=== PATIENT | male | born 1990 | race African-American/Black ===

== ENCOUNTER → 2019-08-10 | Outpatient (CLI) | payer SELFPAY | END | disposition home or self-care (01) | LOC: LABWHC1 07:51 | PROVIDERS: ATTEND Obstetrics & Gynecology | DX: Z13.228 Encounter for screening for other metabolic disorders (principal) | CPT/HCPCS: 36415; 81220 ==

== ENCOUNTER 2021-01-06 17:58 | Emergency (ER) | payer OTHER ==
[2021-01-06 18:03] VITALS: TEMP 98.4
[2021-01-06] MEDS ORDERED: HYDROmorphone 1 MG/ML 1 ML SYRINGE IVP STA ×2 (18:30→19:02)
[2021-01-06] MEDS ORDERED: SODIUM CHLORIDE 0.9% 1,000 ML IV STA ×2 (18:34→19:06)
--- NOTE | 2021-01-06 18:44 | ED ---
Extremity Problem HPI - General Chief complaint: Extremity Problem,Nontraumatic Stated complaint: Right arm pain Time Seen by Provider: 01/06/21 18:29 Source: patient, RN notes reviewed Mode of arrival: ambulatory Limitations: no limitations - History of Present Illness Initial comments: Patient is a 22-year-old male that presents to emergency department complaining of a sickle cell crisis in his right arm. He noted that he's had many in the past and this feels just like the previous ones. He noted the pain as a 10 on a 10. He was sitting in bed in no apparent distress or pain. He noted that he forgot to bring his previous notes with a scale that they've used for pain medication administration. He did note that the lauded worked better. He also noted that he was dehydrated and hasn't taken of water. He did report that he did know being dehydrated increases the likelihood of a sickle cell crisis. He denied any chest pain shortness of breath headache nausea vomiting diarrhea constipation - Related Data Previous Rx's Medication Instructions Recorded oxyCODONE HCL/ACETAMINOPHEN 1 tab PO Q6HR PRN 7 Days #28 tab 01/06/21 [Percocet 10-325 mg] Allergies Allergy/AdvReac Type Severity Reaction Status Date / Time Sulfa (Sulfonamide Allergy Rash/Hives Verified 01/06/21 20:23 Antibiotics) Review of Systems ROS Statement: Those systems with pertinent positive or pertinent negative responses have been documented in the HPI. ROS Other: All systems not noted in ROS Statement are negative. Past Medical History Additional Past Medical History / Comment(s): Sickle cell anemia History of Any Multi-Drug Resistant Organisms: None Reported Past Surgical History: No Surgical Hx Reported Past Psychological History: No Psychological Hx Reported Smoking Status: Current every day smoker Past Alcohol Use History: None Reported Past Drug Use History: Marijuana General Exam Limitations: no limitations General appearance: alert, in no apparent distress Head exam: Present: atraumatic, normocephalic, normal inspection Eye exam: Present: normal appearance, PERRL, EOMI. Absent: scleral icterus, conjunctival injection, periorbital swelling ENT exam: Present: normal exam, mucous membranes moist Neck exam: Present: normal inspection. Absent: tenderness, meningismus, lymphadenopathy Respiratory exam: Present: normal lung sounds bilaterally. Absent: respiratory distress, wheezes, rales, rhonchi, stridor Cardiovascular Exam: Present: regular rate, normal rhythm, normal heart sounds. Absent: systolic murmur, diastolic murmur, rubs, gallop, clicks GI/Abdominal exam: Present: soft, normal bowel sounds. Absent: distended, tenderness, guarding, rebound, rigid Extremities exam: Present: normal inspection, full ROM, normal capillary refill. Absent: tenderness, pedal edema, joint swelling, calf tenderness Back exam: Present: normal inspection Neurological exam: Present: alert, oriented X3, CN II-XII intact Psychiatric exam: Present: normal affect, normal mood Skin exam: Present: warm, dry, intact, normal color. Absent: rash Course Vital Signs 01/06/21 01/06/21 18:00 19:21 Temperature 98.4 F Pulse Rate 81 86 Respiratory 16 18 Rate Blood Pressure 160/103 153/99 O2 Sat by Pulse 93 L 98 Oximetry Medical Decision Making - Medical Decision Making 22-year-old male having a sickle cell crisis right arm. Basic lab work was ordered. Dilaudid 2 mg was ordered and administered, pain will be evaluated to monitor pain control. 1 L normal saline bolus ordered to improve her volume status. More pain medication was given, due to patient being in pain still. Case discussed with Dr. Olson, was decided patient to discharge home with some pain medication and hematology follow-up. - Lab Data Result diagrams: 01/06/21 18:37 01/06/21 18:37 Lab Results 01/06/21 01/06/21 01/06/21 Range/Units 18:37 18:37 19:41 WBC 8.5 (3.8-10.6) k/uL RBC 5.08 (4.30-5.90) m/uL Hgb 14.1 (13.0-17.5) gm/dL Hct 39.5 (39.0-53.0) % MCV 77.7 L (80.0-100.0) fL MCH 27.7 (25.0-35.0) pg MCHC 35.7 (31.0-37.0) g/dL RDW 15.9 H (11.5-15.5) % Plt Count 137 L (150-450) k/uL MPV 8.0 Neutrophils % Not Reportable Neutrophils % (Manual) 54 % Lymphocytes % Not Reportable Lymphocytes % (Manual) 41 % Monocytes % Not Reportable Monocytes % (Manual) 5 % Eosinophils % Not Reportable Basophils % Not Reportable Neutrophils # Not Reportable Neutrophils # (Manual) 4.59 (1.3-7.7) k/uL Lymphocytes # Not Reportable Lymphocytes # (Manual) 3.49 (1.0-4.8) k/uL Monocytes # Not Reportable Monocytes # (Manual) 0.43 (0-1.0) k/uL Eosinophils # Not Reportable Basophils # Not Reportable Nucleated RBCs 0 (0-0) /100 WBC Manual Slide Review Performed Reactive Lymphocytes Present Polychromasia Present Hyperchromasia Slight Microcytosis Slight Target Cells Present Sodium 137 (137-145) mmol/L Potassium 3.9 (3.5-5.1) mmol/L Chloride 103 (98-107) mmol/L Carbon Dioxide 26 (22-30) mmol/L Anion Gap 8 mmol/L BUN 13 (9-20) mg/dL Creatinine 0.97 (0.66-1.25) mg/dL Est GFR (CKD-EPI)AfAm >90 (>60 ml/min/1.73 sqM) Est GFR (CKD-EPI)NonAf >90 (>60 ml/min/1.73 sqM) Glucose 97 (74-99) mg/dL Calcium 9.8 (8.4-10.2) mg/dL Total Bilirubin 1.1 (0.2-1.3) mg/dL AST 35 (17-59) U/L ALT 37 (4-49) U/L Alkaline Phosphatase 76 (38-126) U/L Total Protein 8.4 H (6.3-8.2) g/dL Albumin 5.0 (3.5-5.0) g/dL Urine Color Yellow Urine Appearance Clear (Clear) Urine pH 6.0 (5.0-8.0) Ur Specific [place] 1.012 (1.001-1.035) Urine Protein Negative (Negative) Urine Glucose (UA) Negative (Negative) Urine Ketones Negative (Negative) Urine Blood Negative (Negative) Urine Nitrite Negative (Negative) Urine Bilirubin Negative (Negative) Urine Urobilinogen <2.0 (<2.0) mg/dL Ur Leukocyte Esterase Negative (Negative) Disposition Clinical Impression: Sickle cell crisis Disposition: HOME SELF-CARE Condition: Stable Instructions (If sedation given, give patient instructions): Sickle Cell Crisis (ED) Additional Instructions: Please return to the Emergency Department if symptoms worsen or any other concerns. Follow-up with primary care 1-2 days. Follow-up with hematology in to 7 days. Take pain medication as prescribed. Drink plenty of fluids Is patient prescribed a controlled substance at d/c from ED?: Yes When asked, does pt state using other controlled substances?: No If prescribed controlled substance>3 days was MAPS reviewed?: Yes If opioid is for acute pain is fill amount 7 days or less?: Yes If Rx opioid, was Start Talking consent form obtained?: Yes Referrals: Santos Hernandez Jr, [Primary Care Provider] - 1-2 days Gaurav De Los Santos MD [STAFF PHYSICIAN] - 1-2 days Time of Disposition: 20:56
[2021-01-06 19:05] LABS: ALT 37 U/L (4-49); AST 35 U/L (17-59); African American GFR (CKD) >90 (>60 ml/min/1.73 sqM); Alkaline Phosphatase 76 U/L (38-126); Anion Gap 8 mmol/L; Blood Urea Nitrogen 13 mg/dL (9-20); Calcium 9.8 mg/dL (8.4-10.2); Carbon Dioxide 26 mmol/L (22-30); Chloride 103 mmol/L (98-107); Glucose 97 mg/dL (74-99); Non-African American GFR(CKD) >90 (>60 ml/min/1.73 sqM); Potassium 3.9 mmol/L (3.5-5.1); Sodium 137 mmol/L (137-145); Total Bilirubin 1.1 mg/dL (0.2-1.3); Total Protein 8.4 g/dL (6.3-8.2)
[2021-01-06 19:06] LABS: HCT 39.5 % (39.0-53.0); HGB 14.1 gm/dL (13.0-17.5); Hyperchromasia Slight; MCH 27.7 pg (25.0-35.0); MCHC 35.7 g/dL (31.0-37.0); MCV 77.7 fL (80.0-100.0); Microcytosis Slight; Platelet Count 137 k/uL (150-450); RBC 5.08 m/uL (4.30-5.90); RDW 15.9 % (11.5-15.5); WBC 8.5 k/uL (3.8-10.6)
[2021-01-06 19:22] VITALS: RESP 18
[2021-01-06 19:54] LABS: Appearance,Urine Clear (Clear); Bilirubin,Urine Negative (Negative); Blood,Urine Negative (Negative); Color,Urine Yellow; Glucose,Urine (UA) Negative (Negative); Ketones,Urine Negative (Negative); Leukocyte Esterase,Urine Negative (Negative); Nitrite,Urine Negative (Negative); Protein,Urine Negative (Negative); Specific Gravity,Urine 1.012 (1.001-1.035); Urobilinogen,Urine <2.0 mg/dL (<2.0)
[2021-01-06 20:08] LABS: Lymphocytes # (M) 3.49 k/uL (1.0-4.8); Monocytes # (M) 0.43 k/uL (0-1.0); Neutrophils # (M) 4.59 k/uL (1.3-7.7); Neutrophils % (M) 54 %; Nucleated Red Blood Cells 0 /100 WBC (0-0); Reactive Lymphocytes Present; Total Cells Counted 100
[2021-01-06 20:09] LABS: Polychromasia Present; Target Cells Present
[2021-01-06 20:37] LABS: Reticulocyte % 3.3 % (0.5-2.0)
[2021-01-06] MEDS ORDERED: HYDROmorphone 1 MG/ML 1 ML SYRINGE IM STA (20:51)
[2021-01-06 21:10] VITALS: BP 141/96; PULSE 78
== END 2021-01-06 21:14 | disposition home or self-care (01) ==
LOC: EC 17:58
DX: D57.00 Hb-SS disease with crisis, unspecified (principal); F17.200 Nicotine dependence, unspecified, uncomplicated; Z88.2 Allergy status to sulfonamides
CPT/HCPCS: 36415; 80053; 85025; 85045; 81003; 99284; 96374; 96376; 96372; 96361 ×2; J1170

== ENCOUNTER 2021-06-07 21:15 | Emergency (ER) | payer OTHER ==
[2021-06-07 22:00] VITALS: TEMP 98.3
[2021-06-07] MEDS ORDERED: HYDROmorphone 1 MG/ML 1 ML SYRINGE IVP STA (22:08)
[2021-06-07] MEDS ORDERED: diphenhydrAMINE 50 MG/ML 1 ML VIAL IVP STA (22:08)
--- NOTE | 2021-06-07 22:09 | ED ---
Recheck HPI - General Chief Complaint: Back Pain/Injury Stated Complaint: Sickle cell crisis Time Seen by Provider: 06/07/21 22:07 Source: patient, RN notes reviewed, old records reviewed Mode of arrival: ambulatory Limitations: no limitations - History of Present Illness Initial Comments: This is a 22-year-old male to the ER for evaluation patient presents today for evaluation regards to sickle cell attack crisis. Patient is having left shoulder pain left arm pain which is what normally is the cause for his pain. He denies any recent shortness of breath no recent fevers. No other recent complaints, has been feeling well as of late. MD Complaint: other (Worsening pain, sickle cell) -: hour(s) Returns Today for: persistent/worsening pain related to initial visit Symptoms Since Prior Visit: worsening pain Associated Symptoms: shortness of breath, nausea Treatments Prior to Arrival: heat therapy - Related Data Previous Rx's Medication Instructions Recorded oxyCODONE HCL/ACETAMINOPHEN 1 tab PO Q6HR PRN 7 Days #28 tab 01/06/21 [Percocet 10-325 mg] Allergies Allergy/AdvReac Type Severity Reaction Status Date / Time Sulfa (Sulfonamide Allergy Rash/Hives Verified 06/07/21 21:59 Antibiotics) Review of Systems ROS Statement: Those systems with pertinent positive or pertinent negative responses have been documented in the HPI. ROS Other: All systems not noted in ROS Statement are negative. Past Medical History Additional Past Medical History / Comment(s): Sickle cell anemia History of Any Multi-Drug Resistant Organisms: None Reported Past Surgical History: No Surgical Hx Reported Past Psychological History: No Psychological Hx Reported Smoking Status: Current every day smoker Past Alcohol Use History: None Reported Past Drug Use History: Marijuana General Exam Limitations: no limitations General appearance: alert, in no apparent distress Head exam: Present: atraumatic, normocephalic, normal inspection Eye exam: Present: normal appearance, PERRL, EOMI. Absent: scleral icterus, conjunctival injection, periorbital swelling ENT exam: Present: normal exam, mucous membranes moist Neck exam: Present: normal inspection. Absent: tenderness, meningismus, lymphadenopathy Respiratory exam: Present: normal lung sounds bilaterally. Absent: respiratory distress, wheezes, rales, rhonchi, stridor Cardiovascular Exam: Present: regular rate, normal rhythm, normal heart sounds. Absent: systolic murmur, diastolic murmur, rubs, gallop, clicks GI/Abdominal exam: Present: soft, normal bowel sounds. Absent: distended, tenderness, guarding, rebound, rigid Extremities exam: Present: normal inspection, full ROM, normal capillary refill. Absent: tenderness, pedal edema, joint swelling, calf tenderness Back exam: Present: normal inspection Neurological exam: Present: alert, oriented X3, CN II-XII intact Psychiatric exam: Present: normal affect, normal mood Skin exam: Present: warm, dry, intact, normal color. Absent: rash Course Vital Signs 06/07/21 06/08/21 21:57 01:57 Temperature 98.3 F Pulse Rate 77 85 Respiratory 18 16 Rate Blood Pressure 141/91 135/84 O2 Sat by Pulse 99 100 Oximetry - Reevaluation(s) Reevaluation #1: 06/07/21 Medical record is reviewed patient has no prior ER visits here His pain is well-controlled currently although difficult to control here in the ER Spoke patient regarding findings, questions answered Patient is in no distress and feels comfortable for discharge home Medical Decision Making - Medical Decision Making 30 male DF for evaluation. Patient does suffer from sickle cell disease. She coming in with crisis today with normal x-ray normal labs. Patient given adequate pain control here in the ER for difficulty control pain and can be discharged - Lab Data Result diagrams: 06/07/21 22:20 06/07/21 22:20 Lab Results 06/07/21 06/07/21 Range/Units 22:20 22:20 WBC 9.3 (3.8-10.6) k/uL RBC 5.01 (4.30-5.90) m/uL Hgb 13.7 (13.0-17.5) gm/dL Hct 39.3 (39.0-53.0) % MCV 78.3 L (80.0-100.0) fL MCH 27.3 (25.0-35.0) pg MCHC 34.9 (31.0-37.0) g/dL RDW 16.7 H (11.5-15.5) % Plt Count 122 L (150-450) k/uL MPV 8.6 Neutrophils % (Manual) 50 % Band Neuts % (Manual) 2 % Lymphocytes % (Manual) 41 % Monocytes % (Manual) 4 % Eosinophils % (Manual) 3 % Neutrophils # (Manual) 4.80 (1.3-7.7) k/uL Lymphocytes # (Manual) 3.81 (1.0-4.8) k/uL Monocytes # (Manual) 0.37 (0-1.0) k/uL Eosinophils # (Manual) 0.28 (0-0.7) k/uL Nucleated RBCs 0 (0-0) /100 WBC Manual Slide Review Performed Polychromasia Present Hyperchromasia Slight Anisocytosis Slight Microcytosis Slight Target Cells Present Retic Count 4.4 H (0.5-2.0) % Sodium 139 (137-145) mmol/L Potassium 3.9 (3.5-5.1) mmol/L Chloride 104 (98-107) mmol/L Carbon Dioxide 26 (22-30) mmol/L Anion Gap 9 mmol/L BUN 11 (9-20) mg/dL Creatinine 0.99 (0.66-1.25) mg/dL Est GFR (CKD-EPI)AfAm >90 (>60 ml/min/1.73 sqM) Est GFR (CKD-EPI)NonAf >90 (>60 ml/min/1.73 sqM) Glucose 100 H (74-99) mg/dL Calcium 9.5 (8.4-10.2) mg/dL Phosphorus 4.0 (2.5-4.5) mg/dL Magnesium 1.9 (1.6-2.3) mg/dL Total Bilirubin 1.1 (0.2-1.3) mg/dL AST 28 (17-59) U/L ALT 25 (4-49) U/L Alkaline Phosphatase 78 (38-126) U/L Lactate Dehydrogenase 677 H (313-618) U/L Creatine Kinase 148 (55-170) U/L Total Protein 7.7 (6.3-8.2) g/dL Albumin 4.7 (3.5-5.0) g/dL - Radiology Data Radiology results: report reviewed (Chest x-rays negative for acute disease), image reviewed Disposition Clinical Impression: Sickle-cell disease with pain Disposition: HOME SELF-CARE Condition: Good Instructions (If sedation given, give patient instructions): Sickle Cell Crisis (ED) Is patient prescribed a controlled substance at d/c from ED?: No Referrals: Santos Hernandez Jr, [Primary Care Provider] - 1-2 days
[2021-06-07] MEDS: SODIUM CHLORIDE 0.9% 1,000 ML IV STA (22:26)
[2021-06-07 22:49] LABS: Anisocytosis Slight; HCT 39.3 % (39.0-53.0); HGB 13.7 gm/dL (13.0-17.5); Hyperchromasia Slight; MCH 27.3 pg (25.0-35.0); MCHC 34.9 g/dL (31.0-37.0); MCV 78.3 fL (80.0-100.0); Mean Platelet Volume 8.6; Microcytosis Slight; RBC 5.01 m/uL (4.30-5.90); RDW 16.7 % (11.5-15.5); WBC 9.3 k/uL (3.8-10.6)
[2021-06-07 22:54] LABS: ALT 25 U/L (4-49); AST 28 U/L (17-59); African American GFR (CKD) >90 (>60 ml/min/1.73 sqM); Albumin 4.7 g/dL (3.5-5.0); Alkaline Phosphatase 78 U/L (38-126); Anion Gap 9 mmol/L; Blood Urea Nitrogen 11 mg/dL (9-20); Calcium 9.5 mg/dL (8.4-10.2); Carbon Dioxide 26 mmol/L (22-30); Chloride 104 mmol/L (98-107); Creatine Kinase 148 U/L (55-170); Glucose 100 mg/dL (74-99); LDH 677 U/L (313-618); Magnesium 1.9 mg/dL (1.6-2.3); Non-African American GFR(CKD) >90 (>60 ml/min/1.73 sqM); Potassium 3.9 mmol/L (3.5-5.1); Sodium 139 mmol/L (137-145); Total Bilirubin 1.1 mg/dL (0.2-1.3); Total Protein 7.7 g/dL (6.3-8.2)
[2021-06-07 22:58] LABS: Reticulocyte % 4.4 % (0.5-2.0)
--- NOTE | 2021-06-07 23:12 | XR ---
EXAMINATION TYPE: XR chest 2V DATE OF EXAM: 06/07/2021 COMPARISON: NONE HISTORY: Weakness TECHNIQUE: 2 views FINDINGS: Heart and mediastinum are normal. Lungs are clear. Diaphragm is normal. Bony thorax appears normal. IMPRESSION: Normal chest.
[2021-06-08 00:01] LABS: Band Neutrophils % 2 %; Eosinophils # (M) 0.28 k/uL (0-0.7); Lymphocytes # (M) 3.81 k/uL (1.0-4.8); Monocytes # (M) 0.37 k/uL (0-1.0); Neutrophils % (M) 50 %; Nucleated Red Blood Cells 0 /100 WBC (0-0); Total Cells Counted 100
[2021-06-08 00:02] LABS: Polychromasia Present; Target Cells Present
[2021-06-08 00:03] LABS: Platelet Count 122 k/uL (150-450)
[2021-06-08] MEDS ORDERED: HYDROmorphone 1 MG/ML 1 ML SYRINGE IVP STA ×2 (00:06→01:18)
[2021-06-08] MEDS ORDERED: ACET/COD 300 MG/30 MG STARTER PACK 6 TAB BTL PO STA (00:25)
[2021-06-08] MEDS: SODIUM CHLORIDE 0.9% 1,000 ML IV STA (00:28)
[2021-06-08] MEDS ORDERED: diphenhydrAMINE 50 MG/ML 1 ML VIAL IVP STA (01:18)
[2021-06-08 01:58] VITALS: BP 135/84; PULSE 85; RESP 16
== END 2021-06-08 02:03 | disposition home or self-care (01) ==
LOC: EC 21:15
DX: D57.00 Hb-SS disease with crisis, unspecified (principal); F17.200 Nicotine dependence, unspecified, uncomplicated; F12.90 Cannabis use, unspecified, uncomplicated
CPT/HCPCS: 36415; 85660; 80053; 82550; 83615; 83735; 84100; 85025; 85045; 71046; 99283; 96374; 96375; 96376 ×3; J1200 ×2; J1170 ×2

== ENCOUNTER 2021-06-08 18:30 | Emergency (ER) | payer OTHER ==
[2021-06-08 18:39] VITALS: TEMP 98.9
[2021-06-08] MEDS ORDERED: SODIUM CHLORIDE 0.9% 1,000 ML IV STA (19:39)
[2021-06-08] MEDS ORDERED: diphenhydrAMINE 50 MG/ML 1 ML VIAL IVP STA (19:39)
[2021-06-08] MEDS ORDERED: HYDROmorphone 1 MG/ML 1 ML SYRINGE IVP STA ×3 (19:39→22:06)
[2021-06-08 20:27] LABS: ALT 23 U/L (4-49); AST 25 U/L (17-59); African American GFR (CKD) >90 (>60 ml/min/1.73 sqM); Albumin 4.3 g/dL (3.5-5.0); Alkaline Phosphatase 77 U/L (38-126); Anion Gap 6 mmol/L; Blood Urea Nitrogen 9 mg/dL (9-20); Calcium 9.2 mg/dL (8.4-10.2); Carbon Dioxide 29 mmol/L (22-30); Chloride 105 mmol/L (98-107); Glucose 96 mg/dL (74-99); Non-African American GFR(CKD) >90 (>60 ml/min/1.73 sqM); Potassium 3.9 mmol/L (3.5-5.1); Sodium 140 mmol/L (137-145); Total Protein 7.2 g/dL (6.3-8.2)
[2021-06-08 20:43] LABS: Anisocytosis Slight; Basophils % (A) 1 %; Eosinophils # (A) 0.2 k/uL (0-0.7); Eosinophils % (A) 3 %; HCT 36.4 % (39.0-53.0); HGB 13.1 gm/dL (13.0-17.5); Hyperchromasia Slight; Lymphocytes # (A) 2.5 k/uL (1.0-4.8); Lymphocytes % (A) 34 %; MCH 28.1 pg (25.0-35.0); Mean Platelet Volume 8.5; Microcytosis Slight; Monocytes # (A) 0.4 k/uL (0-1.0); Monocytes % (A) 6 %; Neutrophils # (A) 4.1 k/uL (1.3-7.7); Neutrophils % (A) 55 %; Platelet Count 108 k/uL (150-450); RBC 4.67 m/uL (4.30-5.90); RDW 16.1 % (11.5-15.5); WBC 7.4 k/uL (3.8-10.6)
[2021-06-08 20:48] LABS: INR 1.1 (<1.2); Partial Thromboplastin Time 27.9 sec (22.0-30.0); Prothrombin Time 11.6 sec (9.0-12.0)
[2021-06-08] MEDS ORDERED: SODIUM CHLORIDE 0.9% 2,000 ML IV STA (20:50)
[2021-06-08 20:55] LABS: Large Platelets Present; Poikilocytosis (M) Present; Polychromasia Present; Target Cells Present
--- NOTE | 2021-06-08 22:20 | ED ---
Recheck HPI - General Chief Complaint: Recheck/Abnormal Lab/Rx Stated Complaint: revisit - sickle cell crisis Time Seen by Provider: 06/08/21 19:35 Source: patient, RN notes reviewed Mode of arrival: ambulatory Limitations: no limitations - History of Present Illness Initial Comments: Patient is a 30-year-old male that presents to emergency department complaining of a sickle cell crisis episode. He notes he was recently seen in the emergency Department on 06/07/2021. He was in no apparent distress or pain while sitting in bed during the exam interview. Patient was very calm and polite. He notes that IV fluids and Dilaudid and Benadryl help with his pain. Patient was a well-appearing well-hydrated 30-year-old male. He denied any chest pain shortness of breath headache nausea vomiting diarrhea constipation fever fatigue chills. - Related Data Home Medications Medication Instructions Recorded Confirmed Acetaminophen [Tylenol] 500 mg PO Q4-6H PRN 06/08/21 06/08/21 Acetaminophen-Codeine 300-30mg 1 tab PO Q6H PRN 06/08/21 06/08/21 [Tylenol w/codeine #3] Previous Rx's Medication Instructions Recorded HYDROcodone/APAP 5-325MG [Ravalli 1 tab PO Q4HR PRN 3 Days #18 tab 06/08/21 5-325] Hydrocodone/Acetaminophen [Ravalli 1 tab PO Q4HR PRN 3 Days #18 tab 06/08/21 7.5-325] Allergies Allergy/AdvReac Type Severity Reaction Status Date / Time Sulfa (Sulfonamide Allergy Rash/Hives Verified 06/08/21 20:13 Antibiotics) Review of Systems ROS Statement: Those systems with pertinent positive or pertinent negative responses have been documented in the HPI. ROS Other: All systems not noted in ROS Statement are negative. Past Medical History Additional Past Medical History / Comment(s): Sickle cell anemia History of Any Multi-Drug Resistant Organisms: None Reported Past Surgical History: No Surgical Hx Reported Past Psychological History: No Psychological Hx Reported Smoking Status: Current every day smoker Past Alcohol Use History: None Reported Past Drug Use History: Marijuana General Exam Limitations: no limitations General appearance: alert, in no apparent distress Head exam: Present: atraumatic, normocephalic, normal inspection Eye exam: Present: normal appearance, PERRL, EOMI. Absent: scleral icterus, conjunctival injection, periorbital swelling Neck exam: Present: normal inspection Respiratory exam: Present: normal lung sounds bilaterally. Absent: respiratory distress, wheezes, rales, rhonchi, stridor Cardiovascular Exam: Present: regular rate, normal rhythm, normal heart sounds. Absent: systolic murmur, diastolic murmur, rubs, gallop, clicks GI/Abdominal exam: Present: soft, normal bowel sounds. Absent: distended, ten derness, guarding, rebound, rigid Extremities exam: Present: normal inspection, full ROM, normal capillary refill, other (Right lower arm pain, heating pack in place.). Absent: tenderness, pedal edema, joint swelling, calf tenderness Neurological exam: Present: alert, oriented X3 Psychiatric exam: Present: normal affect, normal mood Skin exam: Present: warm, dry, intact, normal color. Absent: rash Course Vital Signs 06/08/21 18:37 Temperature 98.9 F Pulse Rate 94 Respiratory 17 Rate Blood Pressure 143/91 O2 Sat by Pulse 100 Oximetry Medical Decision Making - Medical Decision Making 30-year-old male complaining of a sickle cell crisis. 2 mg of Dilaudid, 50 mg Benadryl, 1 L normal saline ordered. Patient was still complaining of pain to more milligrams of Dilaudid ordered. Case discussed with Dr. Olvera, can discharge home with follow-up to primary care. - Lab Data Result diagrams: 06/08/21 20:09 06/08/21 20:09 Lab Results 06/08/21 06/08/21 06/08/21 Range/Units 20:09 20:09 20:09 WBC 7.4 (3.8-10.6) k/uL RBC 4.67 (4.30-5.90) m/uL Hgb 13.1 (13.0-17.5) gm/dL Hct 36.4 L (39.0-53.0) % MCV 78.0 L (80.0-100.0) fL MCH 28.1 (25.0-35.0) pg MCHC 36.0 (31.0-37.0) g/dL RDW 16.1 H (11.5-15.5) % Plt Count 108 L (150-450) k/uL MPV 8.5 Neutrophils % 55 % Lymphocytes % 34 % Monocytes % 6 % Eosinophils % 3 % Basophils % 1 % Neutrophils # 4.1 (1.3-7.7) k/uL Lymphocytes # 2.5 (1.0-4.8) k/uL Monocytes # 0.4 (0-1.0) k/uL Eosinophils # 0.2 (0-0.7) k/uL Basophils # 0.0 (0-0.2) k/uL Manual Slide Review Performed Large Platelets Present Polychromasia Present Hyperchromasia Slight Poikilocytosis (manual Present Anisocytosis Slight Microcytosis Slight Target Cells Present PT 11.6 (9.0-12.0) sec INR 1.1 (<1.2) APTT 27.9 (22.0-30.0) sec Sodium 140 (137-145) mmol/L Potassium 3.9 (3.5-5.1) mmol/L Chloride 105 (98-107) mmol/L Carbon Dioxide 29 (22-30) mmol/L Anion Gap 6 mmol/L BUN 9 (9-20) mg/dL Creatinine 1.00 (0.66-1.25) mg/dL Est GFR (CKD-EPI)AfAm >90 (>60 ml/min/1.73 sqM) Est GFR (CKD-EPI)NonAf >90 (>60 ml/min/1.73 sqM) Glucose 96 (74-99) mg/dL Calcium 9.2 (8.4-10.2) mg/dL Total Bilirubin 1.0 (0.2-1.3) mg/dL AST 25 (17-59) U/L ALT 23 (4-49) U/L Alkaline Phosphatase 77 (38-126) U/L Total Protein 7.2 (6.3-8.2) g/dL Albumin 4.3 (3.5-5.0) g/dL Disposition Clinical Impression: Sickle-cell disease with pain Disposition: HOME SELF-CARE Condition: Stable Instructions (If sedation given, give patient instructions): Sickle Cell Disease (DC) Additional Instructions: Please return to the Emergency Department if symptoms worsen or any other concerns. Follow-up with primary care in the next 1-2 days. Take pain medication as prescribed. Prescriptions: HYDROcodone/APAP 5-325MG [[place] 5-325] 1 tab PO Q4HR PRN 3 Days #18 tab PRN Reason: Pain Hydrocodone/Acetaminophen [[place] 7.5-325] 1 tab PO Q4HR PRN 3 Days #18 tab PRN Reason: Pain Is patient prescribed a controlled substance at d/c from ED?: Yes When asked, does pt state using other controlled substances?: No If prescribed controlled substance>3 days was MAPS reviewed?: Prescribed <3 Days If opioid is for acute pain is fill amount 7 days or less?: Yes Referrals: Santos Hernandez Jr, [Primary Care Provider] - 1-2 days Time of Disposition: 22:37
[2021-06-08 23:22] VITALS: BP 138/88; PULSE 86; RESP 16
[2021-06-08] MEDS ORDERED: KETOROLAC 15 MG/ML 1 ML VIAL IVP STA (23:22)
== END 2021-06-08 23:40 | disposition home or self-care (01) ==
LOC: EC 18:30
DX: D57.00 Hb-SS disease with crisis, unspecified (principal); F17.200 Nicotine dependence, unspecified, uncomplicated; F12.90 Cannabis use, unspecified, uncomplicated; Z88.2 Allergy status to sulfonamides
CPT/HCPCS: 36415; 80053; 85025; 85610; 85730; 96374; 96375 ×2; 96376 ×2; 96361 ×3; 99284; J1200; J1170; J1885

== ENCOUNTER 2021-09-06 10:32 | Emergency (ER) | payer OTHER ==
[2021-09-06 10:54] VITALS: BP 178/83; PULSE 74; RESP 18; TEMP 99
[2021-09-06] MEDS ORDERED: HYDROmorphone 1 MG/ML 1 ML SYRINGE IVP STA ×2 (11:20→12:39)
[2021-09-06] MEDS ORDERED: SODIUM CHLORIDE 0.9% 1,000 ML IV ONE ×2 (11:20→12:39)
--- NOTE | 2021-09-06 11:31 | ED ---
General Adult HPI - General Chief complaint: Extremity Problem,Nontraumatic Stated complaint: sickle cell crisis Time Seen by Provider: 09/06/21 11:07 Source: patient Mode of arrival: ambulatory Limitations: no limitations - History of Present Illness Initial comments: 30-year-old male resents to the emergency Department with complaints of bilateral shoulder pain radiating down his forearms. He states symptoms began around 2:00 this morning. Reports history of sickle cell disease and attributes this discomfort to flare up. Patient denies injury or strenuous activity. States he attempted to treat his symptoms at home by increasing oral intake of fluids and utilizing a heating pad, but reports that he continues to escalate. Patient is able to find mild relief in a position in which his arms are outstretched. Patient denies fever, chills, headache, vision changes, chest pain, difficulty breathing, shortness of breath, abdominal pain, nausea, vomiting, dysuria, hematochezia, and lower extremity pain. States his last flareup occurred 2-3 months ago. - Related Data Home Medications Medication Instructions Recorded Confirmed Acetaminophen [Tylenol] 500 mg PO Q4-6H PRN 06/08/21 06/08/21 Acetaminophen-Codeine 300-30mg 1 tab PO Q6H PRN 06/08/21 06/08/21 [Tylenol w/codeine #3] Previous Rx's Medication Instructions Recorded HYDROcodone/APAP 5-325MG [Hollins 1 tab PO Q4HR PRN 3 Days #18 tab 06/08/21 5-325] Hydrocodone/Acetaminophen [Hollins 1 tab PO Q4HR PRN 3 Days #18 tab 06/08/21 7.5-325] Allergies Allergy/AdvReac Type Severity Reaction Status Date / Time Sulfa (Sulfonamide Allergy Rash/Hives Verified 09/06/21 10:54 Antibiotics) Review of Systems ROS Statement: Those systems with pertinent positive or pertinent negative responses have been documented in the HPI. ROS Other: All systems not noted in ROS Statement are negative. Past Medical History Additional Past Medical History / Comment(s): Sickle cell anemia History of Any Multi-Drug Resistant Organisms: None Reported Past Surgical History: No Surgical Hx Reported Past Psychological History: No Psychological Hx Reported Smoking Status: Current every day smoker Past Alcohol Use History: None Reported Past Drug Use History: Marijuana General Exam Limitations: no limitations (Well-developed, well-nourished male in no acute distress. Temperature 99.0, pulse 74, respirations 18, blood pressure 178/83, pulse ox 99% on room air) General appearance: alert, in no apparent distress Neck exam: Present: normal inspection. Absent: tenderness, meningismus, lymphadenopathy Respiratory exam: Present: normal lung sounds bilaterally. Absent: respiratory distress, wheezes, rales, rhonchi, stridor Cardiovascular Exam: Present: regular rate, normal rhythm, normal heart sounds. Absent: systolic murmur, diastolic murmur, rubs, gallop, clicks GI/Abdominal exam: Present: soft, normal bowel sounds. Absent: distended, tenderness, guarding, rebound, rigid Extremities exam: Present: normal inspection, full ROM, normal capillary refill. Absent: joint swelling Left General: Present: normal inspection Shoulder Exam: Present: normal inspection, full ROM. Absent: swelling, erythema Vascular: Present: normal capillary refill, radial pulse (strong +2 pulse), brachial pulse (strong +2 pulse). Absent: vascular compromise Right General: Present: normal inspection Shoulder Exam: Present: normal inspection, full ROM Vascular: Present: normal capillary refill, radial pulse, brachial pulse. Absent: vascular compromise Neurological exam: Present: alert, oriented X3, CN II-XII intact Psychiatric exam: Present: normal affect Skin exam: Present: warm, dry, intact, normal color. Absent: rash Course Vital Signs 09/06/21 10:51 Temperature 99.0 F Pulse Rate 74 Respiratory 18 Rate Blood Pressure 178/83 O2 Sat by Pulse 99 Oximetry - Reevaluation(s) Reevaluation #1: 09/06/21 14:24 Patient appears to be resting more actively at this time. States he rates his pain at a "high 8," though feels that this is reasonable. Plan to discharge home was discussed with patient; he is agreeable. Medical Decision Making - Medical Decision Making 30-year-old -Swedish male with a history of sickle cell disease presents to the emergency Department with complaints of bilateral shoulder pain that extends into the forearms. Patient identifies this discomfort as a sickle cell related pain. Physical exam is negative for any erythema or edema of upper extremity joints. Denied dizziness, chest pain, or shortness of breath. No significant lab abnormalities noted. Supportive care attempts were made at home; warm blankets were applied patient upon arrival. Patient received IV hydration and pain medication with improvement in symptoms. This patient's care was discussed with my attending Dr. Olson. Patient will be discharged home to follow-up with hematology and encouraged to establish with a primary care provider. Return parameters were discussed in detail. Patient verbalized understanding and agrees with this plan. - Lab Data Result diagrams: 09/06/21 11:39 09/06/21 11:39 Lab Results 09/06/21 09/06/21 Range/Units 11:39 11:39 WBC 9.6 (3.8-10.6) k/uL RBC 5.32 (4.30-5.90) m/uL Hgb 14.9 (13.0-17.5) gm/dL Hct 41.5 (39.0-53.0) % MCV 78.0 L (80.0-100.0) fL MCH 27.9 (25.0-35.0) pg MCHC 35.8 (31.0-37.0) g/dL RDW 15.2 (11.5-15.5) % Plt Count 117 L (150-450) k/uL MPV 9.0 Neutrophils % 57 % Lymphocytes % 33 % Monocytes % 6 % Eosinophils % 3 % Basophils % 1 % Neutrophils # 5.4 (1.3-7.7) k/uL Lymphocytes # 3.1 (1.0-4.8) k/uL Monocytes # 0.6 (0-1.0) k/uL Eosinophils # 0.3 (0-0.7) k/uL Basophils # 0.1 (0-0.2) k/uL Manual Slide Review Performed Hyperchromasia Moderate Microcytosis Slight Sodium 139 (137-145) mmol/L Potassium 4.0 (3.5-5.1) mmol/L Chloride 104 (98-107) mmol/L Carbon Dioxide 25 (22-30) mmol/L Anion Gap 10 mmol/L BUN 10 (9-20) mg/dL Creatinine 1.01 (0.66-1.25) mg/dL Est GFR (CKD-EPI)AfAm >90 (>60 ml/min/1.73 sqM) Est GFR (CKD-EPI)NonAf >90 (>60 ml/min/1.73 sqM) Glucose 108 H (74-99) mg/dL Calcium 9.9 (8.4-10.2) mg/dL Total Bilirubin 1.1 (0.2-1.3) mg/dL AST 28 (17-59) U/L ALT 26 (4-49) U/L Alkaline Phosphatase 79 (38-126) U/L Total Protein 8.2 (6.3-8.2) g/dL Albumin 4.8 (3.5-5.0) g/dL Disposition Clinical Impression: Sickle cell disease Disposition: HOME SELF-CARE Condition: Stable Instructions (If sedation given, give patient instructions): Sickle Cell Disease (DC) Additional Instructions: It is important to establish with a primary care provider and timber trimmer using the approach we discussed. Continue supportive care measures at home. Return to the emergency department with any new, worsening, or concerning symptoms. Is patient prescribed a controlled substance at d/c from ED?: No Referrals: None,Stated [Primary Care Provider] - 1-2 days Jose Elias Ortega MD [STAFF PHYSICIAN] - 1-2 days Time of Disposition: 14:53
[2021-09-06 11:59] LABS: ALT 26 U/L (4-49); AST 28 U/L (17-59); African American GFR (CKD) >90 (>60 ml/min/1.73 sqM); Albumin 4.8 g/dL (3.5-5.0); Alkaline Phosphatase 79 U/L (38-126); Anion Gap 10 mmol/L; Blood Urea Nitrogen 10 mg/dL (9-20); Calcium 9.9 mg/dL (8.4-10.2); Carbon Dioxide 25 mmol/L (22-30); Chloride 104 mmol/L (98-107); Glucose 108 mg/dL (74-99); Non-African American GFR(CKD) >90 (>60 ml/min/1.73 sqM); Sodium 139 mmol/L (137-145); Total Bilirubin 1.1 mg/dL (0.2-1.3); Total Protein 8.2 g/dL (6.3-8.2)
[2021-09-06 12:03] LABS: Basophils # (A) 0.1 k/uL (0-0.2); Basophils % (A) 1 %; Eosinophils # (A) 0.3 k/uL (0-0.7); Eosinophils % (A) 3 %; HCT 41.5 % (39.0-53.0); HGB 14.9 gm/dL (13.0-17.5); Hyperchromasia Moderate; Lymphocytes # (A) 3.1 k/uL (1.0-4.8); Lymphocytes % (A) 33 %; MCH 27.9 pg (25.0-35.0); MCHC 35.8 g/dL (31.0-37.0); Microcytosis Slight; Monocytes # (A) 0.6 k/uL (0-1.0); Monocytes % (A) 6 %; Neutrophils # (A) 5.4 k/uL (1.3-7.7); Neutrophils % (A) 57 %; Platelet Count 117 k/uL (150-450); RBC 5.32 m/uL (4.30-5.90); RDW 15.2 % (11.5-15.5); WBC 9.6 k/uL (3.8-10.6)
[2021-09-06] MEDS ORDERED: HYDROmorphone 0.5 MG/0.5 ML SYRINGE IVP STA (14:11)
== END 2021-09-06 15:11 | disposition home or self-care (01) ==
LOC: EC 10:32
DX: D57.1 Sickle-cell disease without crisis (principal); F12.90 Cannabis use, unspecified, uncomplicated; F17.200 Nicotine dependence, unspecified, uncomplicated
CPT/HCPCS: 36415; 80053; 85025; 99283; 96374; 96375; 96376; 96361 ×2; J1170 ×2

== ENCOUNTER 2022-03-12 21:24 | Emergency (ER) | payer OTHER ==
[2022-03-12 21:32] VITALS: TEMP 97.9
[2022-03-12] MEDS ORDERED: SODIUM CHLORIDE 0.9% 1,000 ML IV ONE (21:46)
[2022-03-12 22:29] LABS: Anisocytosis Slight; HCT 38.9 % (39.0-53.0); HGB 14.1 gm/dL (13.0-17.5); Hyperchromasia Slight; MCH 27.8 pg (25.0-35.0); MCHC 36.3 g/dL (31.0-37.0); MCV 76.5 fL (80.0-100.0); Mean Platelet Volume 8.5; Microcytosis Slight; Platelet Count 153 k/uL (150-450); RBC 5.09 m/uL (4.30-5.90); RDW 16.3 % (11.5-15.5); Reticulocyte % 2.9 % (0.5-2.0); WBC 8.1 k/uL (3.8-10.6)
[2022-03-12 22:38] LABS: ALT 35 U/L (4-49); AST 28 U/L (17-59); African American GFR (CKD) >90 (>60 ml/min/1.73 sqM); Albumin 4.5 g/dL (3.5-5.0); Alkaline Phosphatase 75 U/L (38-126); Anion Gap 6 mmol/L; Blood Urea Nitrogen 8 mg/dL (9-20); Calcium 9.6 mg/dL (8.4-10.2); Carbon Dioxide 30 mmol/L (22-30); Chloride 101 mmol/L (98-107); Glucose 138 mg/dL (74-99); Non-African American GFR(CKD) >90 (>60 ml/min/1.73 sqM); Potassium 3.4 mmol/L (3.5-5.1); Sodium 137 mmol/L (137-145); Total Protein 7.9 g/dL (6.3-8.2)
--- NOTE | 2022-03-12 22:43 | XR ---
EXAMINATION TYPE: XR chest 2V DATE OF EXAM: 03/12/2022 COMPARISON: 06/07/2021 HISTORY: Weakness TECHNIQUE: FINDINGS: Heart and mediastinum are normal. Lungs are clear. M is normal. Bony thorax appears normal. IMPRESSION: Normal chest. No change.
[2022-03-12] MEDS ORDERED: HYDROmorphone 1 MG/ML 1 ML SYRINGE IVP STA (22:46)
--- NOTE | 2022-03-12 22:58 | ED ---
General Adult HPI - General Chief complaint: Recheck/Abnormal Lab/Rx Stated complaint: Left arm pain Time Seen by Provider: 03/12/22 21:33 Source: patient Mode of arrival: ambulatory Limitations: no limitations - History of Present Illness Initial comments: This patient is a 31-year-old man with history of sickle cell disease who presents to be evaluated for what he describes as sickle cell pain. He states it is been coming on over the past day to 2. He indicates the left arm. He states that it is similar to previous episodes of sickle pain. He has not had any symptoms suggesting infection. No fever or chills. No sinus congestion or cough. No chest pain or dyspnea. No change in urination or bowel movements. No swelling or warmth to the arm -: days(s) Location: left, upper extremity Radiation: non-radiation Quality: aching Consistency: constant Improves with: other (Position) Worsens with: none Associated Symptoms: denies other symptoms Treatments Prior to Arrival: none - Related Data Home Medications Medication Instructions Recorded Confirmed No Known Home Medications 03/12/22 03/12/22 Allergies Allergy/AdvReac Type Severity Reaction Status Date / Time Sulfa (Sulfonamide Allergy Rash/Hives Verified 03/12/22 21:59 Antibiotics) Review of Systems ROS Statement: Those systems with pertinent positive or pertinent negative responses have been documented in the HPI. ROS Other: All systems not noted in ROS Statement are negative. Constitutional: Denies: fever, chills, weakness ENT: Denies: congestion Respiratory: Denies: cough, dyspnea Cardiovascular: Denies: chest pain, palpitations Gastrointestinal: Denies: abdominal pain, nausea, vomiting, diarrhea Genitourinary: Denies: dysuria, frequency, hematuria Musculoskeletal: Denies: back pain Skin: Denies: rash Neurological: Denies: headache, weakness Past Medical History Additional Past Medical History / Comment(s): Sickle cell anemia History of Any Multi-Drug Resistant Organisms: None Reported Past Surgical History: No Surgical Hx Reported Past Psychological History: No Psychological Hx Reported Smoking Status: Current every day smoker Past Alcohol Use History: None Reported Past Drug Use History: Marijuana General Exam Limitations: no limitations General appearance: alert, in no apparent distress Head exam: Present: atraumatic, normocephalic Eye exam: Present: normal appearance Neck exam: Present: normal inspection, full ROM Respiratory exam: Present: normal lung sounds bilaterally. Absent: respiratory distress, wheezes, rales, rhonchi, stridor Cardiovascular Exam: Present: regular rate, normal rhythm, normal heart sounds. Absent: systolic murmur, diastolic murmur, rubs, gallop GI/Abdominal exam: Present: soft. Absent: distended, tenderness, guarding, rebound, rigid, mass Extremities exam: Present: normal inspection, normal capillary refill. Absent: pedal edema, calf tenderness Back exam: Present: normal inspection. Absent: CVA tenderness (R), CVA tenderness (L) Neurological exam: Present: alert Skin exam: Present: warm, dry, intact, normal color. Absent: rash Course Vital Signs 03/12/22 21:30 Temperature 97.9 F Pulse Rate 96 Respiratory 18 Rate Blood Pressure 154/90 O2 Sat by Pulse 98 Oximetry Medical Decision Making - Lab Data Result diagrams: 03/12/22 22:10 03/12/22 22:10 Lab Results 03/12/22 03/12/22 03/12/22 Range/Units 22:10 22:10 22:10 WBC 8.1 (3.8-10.6) k/uL RBC 5.09 (4.30-5.90) m/uL Hgb 14.1 (13.0-17.5) gm/dL Hct 38.9 L (39.0-53.0) % MCV 76.5 L (80.0-100.0) fL MCH 27.8 (25.0-35.0) pg MCHC 36.3 (31.0-37.0) g/dL RDW 16.3 H (11.5-15.5) % Plt Count 153 (150-450) k/uL MPV 8.5 Neutrophils % (Manual) 61 % Lymphocytes % (Manual) 28 % Monocytes % (Manual) 7 % Eosinophils % (Manual) 3 % Basophils % (Manual) 1 % Neutrophils # (Manual) 4.94 (1.3-7.7) k/uL Lymphocytes # (Manual) 2.27 (1.0-4.8) k/uL Monocytes # (Manual) 0.57 (0-1.0) k/uL Eosinophils # (Manual) 0.24 (0-0.7) k/uL Basophils # (Manual) 0.08 (0-0.2) k/uL Nucleated RBCs 0 (0-0) /100 WBC Manual Slide Review Performed Hyperchromasia Slight Anisocytosis Slight Anisocytosis (manual) Present Microcytosis Slight Target Cells Present Stomatocytes Present Retic Count 2.9 H (0.5-2.0) % Sodium 137 (137-145) mmol/L Potassium 3.4 L (3.5-5.1) mmol/L Chloride 101 (98-107) mmol/L Carbon Dioxide 30 (22-30) mmol/L Anion Gap 6 mmol/L BUN 8 L (9-20) mg/dL Creatinine 1.02 (0.66-1.25) mg/dL Est GFR (CKD-EPI)AfAm >90 (>60 ml/min/1.73 sqM) Est GFR (CKD-EPI)NonAf >90 (>60 ml/min/1.73 sqM) Glucose 138 H (74-99) mg/dL Calcium 9.6 (8.4-10.2) mg/dL Total Bilirubin 1.0 (0.2-1.3) mg/dL AST 28 (17-59) U/L ALT 35 (4-49) U/L Alkaline Phosphatase 75 (38-126) U/L Total Protein 7.9 (6.3-8.2) g/dL Albumin 4.5 (3.5-5.0) g/dL Urine Color Urine Appearance (Clear) Urine pH (5.0-8.0) Ur Specific [place] (1.001-1.035) Urine Protein (Negative) Urine Glucose (UA) (Negative) Urine Ketones (Negative) Urine Blood (Negative) Urine Nitrite (Negative) Urine Bilirubin (Negative) Urine Urobilinogen (<2.0) mg/dL Ur Leukocyte Esterase (Negative) Blood Type O Positive Blood Type Confirm Blood Type Recheck No Previous Record Bld Type Recheck Status CABO Indicated Antibody Screen NEGATIVE Spec Expiration Date 03/15/2022230903/12/22 03/12/22 Range/Units 23:07 23:50 WBC (3.8-10.6) k/uL RBC (4.30-5.90) m/uL Hgb (13.0-17.5) gm/dL Hct (39.0-53.0) % MCV (80.0-100.0) fL MCH (25.0-35.0) pg MCHC (31.0-37.0) g/dL RDW (11.5-15.5) % Plt Count (150-450) k/uL MPV Neutrophils % (Manual) % Lymphocytes % (Manual) % Monocytes % (Manual) % Eosinophils % (Manual) % Basophils % (Manual) % Neutrophils # (Manual) (1.3-7.7) k/uL Lymphocytes # (Manual) (1.0-4.8) k/uL Monocytes # (Manual) (0-1.0) k/uL Eosinophils # (Manual) (0-0.7) k/uL Basophils # (Manual) (0-0.2) k/uL Nucleated RBCs (0-0) /100 WBC Manual Slide Review Hyperchromasia Anisocytosis Anisocytosis (manual) Microcytosis Target Cells Stomatocytes Retic Count (0.5-2.0) % Sodium (137-145) mmol/L Potassium (3.5-5.1) mmol/L Chloride (98-107) mmol/L Carbon Dioxide (22-30) mmol/L Anion Gap mmol/L BUN (9-20) mg/dL Creatinine (0.66-1.25) mg/dL Est GFR (CKD-EPI)AfAm (>60 ml/min/1.73 sqM) Est GFR (CKD-EPI)NonAf (>60 ml/min/1.73 sqM) Glucose (74-99) mg/dL Calcium (8.4-10.2) mg/dL Total Bilirubin (0.2-1.3) mg/dL AST (17-59) U/L ALT (4-49) U/L Alkaline Phosphatase (38-126) U/L Total Protein (6.3-8.2) g/dL Albumin (3.5-5.0) g/dL Urine Color Yellow Urine Appearance Clear (Clear) Urine pH 7.5 (5.0-8.0) Ur Specific [place] 1.010 (1.001-1.035) Urine Protein Negative (Negative) Urine Glucose (UA) Negative (Negative) Urine Ketones Negative (Negative) Urine Blood Negative (Negative) Urine Nitrite Negative (Negative) Urine Bilirubin Negative (Negative) Urine Urobilinogen <2.0 (<2.0) mg/dL Ur Leukocyte Esterase Negative (Negative) Blood Type Blood Type Confirm O Positive Blood Type Recheck Bld Type Recheck Status Antibody Screen Spec Expiration Date Disposition Clinical Impression: Sickle cell pain crisis Disposition: HOME SELF-CARE Condition: Good Instructions (If sedation given, give patient instructions): Sickle Cell Crisis (ED) Is patient prescribed a controlled substance at d/c from ED?: No Referrals: None,Stated [Primary Care Provider] - 1-2 days
[2022-03-12 23:13] LABS: Anisocytosis (M) Present; Basophils # (M) 0.08 k/uL (0-0.2); Eosinophils # (M) 0.24 k/uL (0-0.7); Lymphocytes # (M) 2.27 k/uL (1.0-4.8); Monocytes # (M) 0.57 k/uL (0-1.0); Neutrophils # (M) 4.94 k/uL (1.3-7.7); Neutrophils % (M) 61 %; Nucleated Red Blood Cells 0 /100 WBC (0-0); Stomatocytes Present; Target Cells Present; Total Cells Counted 100
[2022-03-13 00:28] LABS: Appearance,Urine Clear (Clear); Bilirubin,Urine Negative (Negative); Blood,Urine Negative (Negative); Color,Urine Yellow; Glucose,Urine (UA) Negative (Negative); Ketones,Urine Negative (Negative); Leukocyte Esterase,Urine Negative (Negative); Nitrite,Urine Negative (Negative); PH, Urine 7.5 (5.0-8.0); Protein,Urine Negative (Negative); Urobilinogen,Urine <2.0 mg/dL (<2.0)
[2022-03-13] MEDS ORDERED: HYDROmorphone 0.5 MG/0.5 ML SYRINGE IVP STA (00:54)
[2022-03-13 01:59] VITALS: BP 117/68; PULSE 78; RESP 16
== END 2022-03-13 01:15 | disposition home or self-care (01) ==
LOC: EC 21:24
DX: D57.219 Sickle-cell/Hb-C disease with crisis, unspecified (principal); F17.200 Nicotine dependence, unspecified, uncomplicated; F12.90 Cannabis use, unspecified, uncomplicated; Z88.2 Allergy status to sulfonamides
CPT/HCPCS: 99283; 96374; 96376 ×2; 96361 ×3; 36415; 86900; 86901; 80053; 85025; 85045; 86850; 71046; J1170; 81003

== ENCOUNTER 2022-05-03 05:55 | Emergency (ER) | payer OTHER ==
[2022-05-03 06:03] VITALS: TEMP 98.1
[2022-05-03] MEDS ORDERED: HYDROmorphone 1 MG/ML 1 ML SYRINGE IVP STA ×4 (06:10→10:38)
[2022-05-03] MEDS ORDERED: ONDANSETRON 4 MG/2 ML VIAL IVP STA (06:10)
[2022-05-03] MEDS ORDERED: SODIUM CHLORIDE 0.9% 1,000 ML IV ONE ×3 (06:29→08:41)
--- NOTE | 2022-05-03 06:38 | ED ---
General Adult HPI - General Chief complaint: Extremity Injury, Lower Stated complaint: Sickle cell crisis Time Seen by Provider: 05/03/22 06:04 Source: patient, RN notes reviewed Mode of arrival: ambulatory Limitations: no limitations - History of Present Illness Initial comments: This a 31-year-old male presents emergency Department chief complaint of leg pain, sickle cell crisis. Patient states pain started around 9:00 last night. This is very consistent with prior crisis. Patient states that he does not see a current dietetic intern. Patient denies any fevers chills cough congestion shortness of breath chest pain. Patient states he has left leg pain she does not feel like his rating from his back. Denies any bowel bladder incontinence or retention. Patient offers no mental abdominal pain no other associated symptoms. - Related Data Home Medications Medication Instructions Recorded Confirmed No Known Home Medications 03/12/22 05/03/22 Allergies Allergy/AdvReac Type Severity Reaction Status Date / Time Sulfa (Sulfonamide Allergy Rash/Hives Verified 05/03/22 08:42 Antibiotics) Review of Systems ROS Statement: Those systems with pertinent positive or pertinent negative responses have been documented in the HPI. ROS Other: All systems not noted in ROS Statement are negative. Past Medical History Additional Past Medical History / Comment(s): Sickle cell anemia History of Any Multi-Drug Resistant Organisms: None Reported Past Surgical History: No Surgical Hx Reported Past Psychological History: No Psychological Hx Reported Smoking Status: Current every day smoker Past Alcohol Use History: None Reported Past Drug Use History: Marijuana General Exam General appearance: alert, in no apparent distress Head exam: Present: atraumatic, normocephalic, normal inspection Eye exam: Present: normal appearance, PERRL, EOMI. Absent: scleral icterus, conjunctival injection, periorbital swelling ENT exam: Present: normal exam, normal oropharynx, mucous membranes moist Neck exam: Present: normal inspection, full ROM. Absent: tenderness, meningismus, lymphadenopathy Respiratory exam: Present: normal lung sounds bilaterally. Absent: respiratory distress, wheezes, rales, rhonchi, stridor Cardiovascular Exam: Present: regular rate, normal rhythm, normal heart sounds. Absent: systolic murmur, diastolic murmur, rubs, gallop, clicks GI/Abdominal exam: Present: soft, normal bowel sounds. Absent: distended, tenderness, guarding, rebound, rigid Extremities exam: Present: normal inspection, full ROM, tenderness (Left leg), normal capillary refill. Absent: pedal edema, calf tenderness Neurological exam: Present: alert, oriented X3 Skin exam: Present: warm, dry, intact, normal color. Absent: rash Course Vital Signs 05/03/22 05/03/22 06:01 09:33 Temperature 98.1 F Pulse Rate 66 66 Respiratory 19 16 Rate Blood Pressure 149/99 157/99 O2 Sat by Pulse 100 100 Oximetry Medical Decision Making - Medical Decision Making 22-year-old presented for pain related to sickle cell crisis. Patient was given multiple doses of pain meds, IV fluids. He states his pain is improved. Did offer admission for pain control. Patient declined he states she'll just come back if symptoms worsen. - Lab Data Result diagrams: 05/03/22 06:28 05/03/22 06:28 Lab Results 05/03/22 05/03/22 Range/Units 06:28 06:28 WBC 9.3 (3.8-10.6) k/uL RBC 5.11 (4.30-5.90) m/uL Hgb 14.0 (13.0-17.5) gm/dL Hct 39.7 (39.0-53.0) % MCV 77.6 L (80.0-100.0) fL MCH 27.4 (25.0-35.0) pg MCHC 35.3 (31.0-37.0) g/dL RDW 16.6 H (11.5-15.5) % Plt Count 140 L (150-450) k/uL MPV 9.6 Neutrophils % 73 % Lymphocytes % 19 % Monocytes % 5 % Eosinophils % 1 % Basophils % 1 % Neutrophils # 6.8 (1.3-7.7) k/uL Lymphocytes # 1.8 (1.0-4.8) k/uL Monocytes # 0.5 (0-1.0) k/uL Eosinophils # 0.1 (0-0.7) k/uL Basophils # 0.1 (0-0.2) k/uL Anisocytosis Slight Microcytosis Slight Retic Count 4.0 H (0.5-2.0) % Sodium 136 L (137-145) mmol/L Potassium 4.5 (3.5-5.1) mmol/L Chloride 104 (98-107) mmol/L Carbon Dioxide 21 L (22-30) mmol/L Anion Gap 11 mmol/L BUN 10 (9-20) mg/dL Creatinine 0.92 (0.66-1.25) mg/dL Est GFR (CKD-EPI)AfAm >90 (>60 ml/min/1.73 sqM) Est GFR (CKD-EPI)NonAf >90 (>60 ml/min/1.73 sqM) Glucose 118 H (74-99) mg/dL Calcium 9.4 (8.4-10.2) mg/dL Total Bilirubin 1.3 (0.2-1.3) mg/dL AST 33 (17-59) U/L ALT 26 (4-49) U/L Alkaline Phosphatase 72 (38-126) U/L Lactate Dehydrogenase 760 H (313-618) U/L Total Protein 8.3 H (6.3-8.2) g/dL Albumin 4.9 (3.5-5.0) g/dL Disposition Clinical Impression: Sickle cell crisis Disposition: HOME SELF-CARE Condition: Stable Instructions (If sedation given, give patient instructions): Sickle Cell Crisis (ED) Additional Instructions: Please return to the Emergency Department if symptoms worsen or any other concerns. Is patient prescribed a controlled substance at d/c from ED?: No Referrals: None,Stated [Primary Care Provider] - 1-2 days
[2022-05-03 07:00] LABS: Anisocytosis Slight; Basophils # (A) 0.1 k/uL (0-0.2); Basophils % (A) 1 %; Eosinophils # (A) 0.1 k/uL (0-0.7); Eosinophils % (A) 1 %; HCT 39.7 % (39.0-53.0); Lymphocytes # (A) 1.8 k/uL (1.0-4.8); Lymphocytes % (A) 19 %; MCH 27.4 pg (25.0-35.0); MCHC 35.3 g/dL (31.0-37.0); MCV 77.6 fL (80.0-100.0); Mean Platelet Volume 9.6; Microcytosis Slight; Monocytes # (A) 0.5 k/uL (0-1.0); Monocytes % (A) 5 %; Neutrophils # (A) 6.8 k/uL (1.3-7.7); Neutrophils % (A) 73 %; Platelet Count 140 k/uL (150-450); RBC 5.11 m/uL (4.30-5.90); RDW 16.6 % (11.5-15.5); WBC 9.3 k/uL (3.8-10.6)
[2022-05-03 07:01] LABS: African American GFR (CKD) >90 (>60 ml/min/1.73 sqM); Albumin 4.9 g/dL (3.5-5.0); Anion Gap 11 mmol/L; Blood Urea Nitrogen 10 mg/dL (9-20); Calcium 9.4 mg/dL (8.4-10.2); Carbon Dioxide 21 mmol/L (22-30); Chloride 104 mmol/L (98-107); Glucose 118 mg/dL (74-99); Non-African American GFR(CKD) >90 (>60 ml/min/1.73 sqM); Sodium 136 mmol/L (137-145); Total Bilirubin 1.3 mg/dL (0.2-1.3); Total Protein 8.3 g/dL (6.3-8.2)
[2022-05-03 07:06] LABS: ALT 26 U/L (4-49); AST 33 U/L (17-59); Alkaline Phosphatase 72 U/L (38-126); LDH 760 U/L (313-618); Potassium 4.5 mmol/L (3.5-5.1)
[2022-05-03 11:49] VITALS: BP 148/90; PULSE 64; RESP 18
== END 2022-05-03 11:40 | disposition home or self-care (01) ==
LOC: EC 05:55
DX: D57.00 Hb-SS disease with crisis, unspecified (principal); F17.200 Nicotine dependence, unspecified, uncomplicated; Z88.2 Allergy status to sulfonamides
CPT/HCPCS: 36415; 80053; 83615; 85025; 85045; 99283; 96374; 96375; 96376; 96361; J2405; J1170

== ENCOUNTER 2022-05-03 17:50 | Emergency (ER) | payer OTHER ==
[2022-05-03 19:19] VITALS: TEMP 98.1
[2022-05-03] MEDS ORDERED: HYDROmorphone 1 MG/ML 1 ML SYRINGE IVP STA ×2 (20:22→21:42)
[2022-05-03] MEDS ORDERED: SODIUM CHLORIDE 0.9% 1,000 ML IV ONE (20:22)
--- NOTE | 2022-05-03 20:26 | ED ---
General Adult HPI - General Chief complaint: Abdominal Pain Stated complaint: Revisit here 05/03 Time Seen by Provider: 05/03/22 20:15 Source: patient, RN notes reviewed, old records reviewed Mode of arrival: wheelchair Limitations: no limitations - History of Present Illness Initial comments: 31-year-old male presenting for evaluation of bilateral lower extremity pain. Patient has history of sickle cell anemia. He was seen in the emergency department earlier today with similar pain complaint. He had gone home feeling quite well however over the past several hours his symptoms have worsened. He has not had vomiting or diarrhea. States his pain is typical of previous sickle cell crisis. No fever. No significant chest pain. - Related Data Previous Rx's Medication Instructions Recorded HYDROcodone/APAP 5-325MG [[place] 1 tab PO Q6HR PRN #12 tab 05/03/22 5-325] Ibuprofen [Motrin] 600 mg PO Q8HR PRN #24 tab 05/03/22 Allergies Allergy/AdvReac Type Severity Reaction Status Date / Time Sulfa (Sulfonamide Allergy Rash/Hives Verified 05/03/22 22:05 Antibiotics) Review of Systems ROS Statement: Those systems with pertinent positive or pertinent negative responses have been documented in the HPI. ROS Other: All systems not noted in ROS Statement are negative. Past Medical History Additional Past Medical History / Comment(s): Sickle cell anemia History of Any Multi-Drug Resistant Organisms: None Reported Past Surgical History: No Surgical Hx Reported Past Psychological History: No Psychological Hx Reported Smoking Status: Current every day smoker Past Alcohol Use History: None Reported Past Drug Use History: Marijuana General Exam Limitations: no limitations General appearance: alert, in no apparent distress Head exam: Present: atraumatic, normocephalic Eye exam: Present: normal appearance ENT exam: Present: normal exam Neck exam: Present: normal inspection. Absent: tenderness, meningismus Respiratory exam: Present: normal lung sounds bilaterally. Absent: respiratory distress, wheezes Cardiovascular Exam: Present: regular rate, normal rhythm GI/Abdominal exam: Present: soft. Absent: distended, tenderness, guarding Extremities exam: Present: normal inspection, normal capillary refill. Absent: pedal edema Neurological exam: Present: alert, oriented X3, CN II-XII intact. Absent: motor sensory deficit Psychiatric exam: Present: normal affect, normal mood Skin exam: Present: warm, dry, intact. Absent: cyanosis, diaphoretic Course Vital Signs 05/03/22 05/03/22 19:16 21:53 Temperature 98.1 F Pulse Rate 64 64 Respiratory 20 18 Rate Blood Pressure 158/94 133/90 O2 Sat by Pulse 100 99 Oximetry EKG Findings - EKG Comments: EKG Findings:: EKG: Sinus bradycardia rate 57, RI interval 154, QRS duration 90, QTC [address] segment elevation. Medical Decision Making - Medical Decision Making 31-year-old male with sickle cell presenting with bilateral lower extremity pain, consistent with previous pain episodes. Patient is well-appearing, no hypoxia, no respiratory distress, laboratory studies are repeated, he has hemoglobin of 14, normal electrolytes, reticulocyte count of 4. Urinalysis unremarkable. Patient has not established with hematology. He will require outpatient follow-up. - Lab Data Result diagrams: 05/03/22 20:29 05/03/22 20:29 Lab Results 05/03/22 05/03/22 05/03/22 Range/Units 20:29 20:29 20:29 WBC 9.3 (3.8-10.6) k/uL RBC 5.02 (4.30-5.90) m/uL Hgb 14.0 (13.0-17.5) gm/dL Hct 38.9 L (39.0-53.0) % MCV 77.5 L (80.0-100.0) fL MCH 27.8 (25.0-35.0) pg MCHC 35.8 (31.0-37.0) g/dL RDW 16.7 H (11.5-15.5) % Plt Count 125 L (150-450) k/uL MPV 10.2 Neutrophils % 69 % Lymphocytes % 21 % Monocytes % 7 % Eosinophils % 1 % Basophils % 0 % Neutrophils # 6.5 (1.3-7.7) k/uL Lymphocytes # 2.0 (1.0-4.8) k/uL Monocytes # 0.6 (0-1.0) k/uL Eosinophils # 0.1 (0-0.7) k/uL Basophils # 0.0 (0-0.2) k/uL Manual Slide Review Performed Large Platelets Present Polychromasia Present Hyperchromasia Slight Anisocytosis Slight Microcytosis Slight Target Cells Present Retic Count 4.2 H (0.5-2.0) % Sodium 137 (137-145) mmol/L Potassium 3.7 (3.5-5.1) mmol/L Chloride 103 (98-107) mmol/L Carbon Dioxide 25 (22-30) mmol/L Anion Gap 9 mmol/L BUN 7 L (9-20) mg/dL Creatinine 1.00 (0.66-1.25) mg/dL Est GFR (CKD-EPI)AfAm >90 (>60 ml/min/1.73 sqM) Est GFR (CKD-EPI)NonAf >90 (>60 ml/min/1.73 sqM) Glucose 102 H (74-99) mg/dL Plasma Lactic Acid [place] 1.2 (0.7-2.0) mmol/L Calcium 9.6 (8.4-10.2) mg/dL Magnesium 1.9 (1.6-2.3) mg/dL Total Bilirubin 1.3 (0.2-1.3) mg/dL AST 26 (17-59) U/L ALT 25 (4-49) U/L Alkaline Phosphatase 73 (38-126) U/L Total Protein 7.7 (6.3-8.2) g/dL Albumin 4.7 (3.5-5.0) g/dL Urine Color Urine Appearance (Clear) Urine pH (5.0-8.0) Ur Specific [place] (1.001-1.035) Urine Protein (Negative) Urine Glucose (UA) (Negative) Urine Ketones (Negative) Urine Blood (Negative) Urine Nitrite (Negative) Urine Bilirubin (Negative) Urine Urobilinogen (<2.0) mg/dL Ur Leukocyte Esterase (Negative) 05/03/22 Range/Units 21:29 WBC (3.8-10.6) k/uL RBC (4.30-5.90) m/uL Hgb (13.0-17.5) gm/dL Hct (39.0-53.0) % MCV (80.0-100.0) fL MCH (25.0-35.0) pg MCHC (31.0-37.0) g/dL RDW (11.5-15.5) % Plt Count (150-450) k/uL MPV Neutrophils % % Lymphocytes % % Monocytes % % Eosinophils % % Basophils % % Neutrophils # (1.3-7.7) k/uL Lymphocytes # (1.0-4.8) k/uL Monocytes # (0-1.0) k/uL Eosinophils # (0-0.7) k/uL Basophils # (0-0.2) k/uL Manual Slide Review Large Platelets Polychromasia Hyperchromasia Anisocytosis Microcytosis Target Cells Retic Count (0.5-2.0) % Sodium (137-145) mmol/L Potassium (3.5-5.1) mmol/L Chloride (98-107) mmol/L Carbon Dioxide (22-30) mmol/L Anion Gap mmol/L BUN (9-20) mg/dL Creatinine (0.66-1.25) mg/dL Est GFR (CKD-EPI)AfAm (>60 ml/min/1.73 sqM) Est GFR (CKD-EPI)NonAf (>60 ml/min/1.73 sqM) Glucose (74-99) mg/dL Plasma Lactic Acid [place] (0.7-2.0) mmol/L Calcium (8.4-10.2) mg/dL Magnesium (1.6-2.3) mg/dL Total Bilirubin (0.2-1.3) mg/dL AST (17-59) U/L ALT (4-49) U/L Alkaline Phosphatase (38-126) U/L Total Protein (6.3-8.2) g/dL Albumin (3.5-5.0) g/dL Urine Color Light Yellow Urine Appearance Clear (Clear) Urine pH 7.0 (5.0-8.0) Ur Specific [place] 1.006 (1.001-1.035) Urine Protein Negative (Negative) Urine Glucose (UA) Negative (Negative) Urine Ketones Negative (Negative) Urine Blood Negative (Negative) Urine Nitrite Negative (Negative) Urine Bilirubin Negative (Negative) Urine Urobilinogen <2.0 (<2.0) mg/dL Ur Leukocyte Esterase Negative (Negative) Disposition Clinical Impression: Sickle cell crisis Disposition: HOME SELF-CARE Condition: Fair Prescriptions: Ibuprofen [Motrin] 600 mg PO Q8HR PRN #24 tab PRN Reason: Pain HYDROcodone/APAP 5-325MG [[place] 5-325] 1 tab PO Q6HR PRN #12 tab PRN Reason: Pain Is patient prescribed a controlled substance at d/c from ED?: No Referrals: Gaurav De Los Santos MD [STAFF PHYSICIAN] - 1-2 days Yaritza Leonard MD [STAFF PHYSICIAN] - 1-2 days Time of Disposition: 23:14
[2022-05-03 20:50] LABS: ALT 25 U/L (4-49); AST 26 U/L (17-59); African American GFR (CKD) >90 (>60 ml/min/1.73 sqM); Albumin 4.7 g/dL (3.5-5.0); Alkaline Phosphatase 73 U/L (38-126); Anion Gap 9 mmol/L; Blood Urea Nitrogen 7 mg/dL (9-20); Calcium 9.6 mg/dL (8.4-10.2); Carbon Dioxide 25 mmol/L (22-30); Chloride 103 mmol/L (98-107); Glucose 102 mg/dL (74-99); Magnesium 1.9 mg/dL (1.6-2.3); Non-African American GFR(CKD) >90 (>60 ml/min/1.73 sqM); Potassium 3.7 mmol/L (3.5-5.1); Sodium 137 mmol/L (137-145); Total Bilirubin 1.3 mg/dL (0.2-1.3); Total Protein 7.7 g/dL (6.3-8.2)
[2022-05-03] MEDS ORDERED: SODIUM CHLORIDE 0.9% 500 ML 500 ML IV ONE (21:42)
[2022-05-03 21:48] LABS: Anisocytosis Slight; Basophils % (A) 0 %; Eosinophils # (A) 0.1 k/uL (0-0.7); Eosinophils % (A) 1 %; HCT 38.9 % (39.0-53.0); Hyperchromasia Slight; Lymphocytes % (A) 21 %; MCH 27.8 pg (25.0-35.0); MCHC 35.8 g/dL (31.0-37.0); MCV 77.5 fL (80.0-100.0); Mean Platelet Volume 10.2; Microcytosis Slight; Monocytes # (A) 0.6 k/uL (0-1.0); Monocytes % (A) 7 %; Neutrophils # (A) 6.5 k/uL (1.3-7.7); Neutrophils % (A) 69 %; Platelet Count 125 k/uL (150-450); RBC 5.02 m/uL (4.30-5.90); RDW 16.7 % (11.5-15.5); Reticulocyte % 4.2 % (0.5-2.0); WBC 9.3 k/uL (3.8-10.6)
[2022-05-03 21:54] VITALS: RESP 18
[2022-05-03 22:10] LABS: Appearance,Urine Clear (Clear); Bilirubin,Urine Negative (Negative); Blood,Urine Negative (Negative); Color,Urine Light Yellow; Glucose,Urine (UA) Negative (Negative); Ketones,Urine Negative (Negative); Leukocyte Esterase,Urine Negative (Negative); Nitrite,Urine Negative (Negative); Protein,Urine Negative (Negative); Specific Gravity,Urine 1.006 (1.001-1.035); Urobilinogen,Urine <2.0 mg/dL (<2.0)
[2022-05-03 22:49] LABS: Large Platelets Present; Polychromasia Present; Target Cells Present
[2022-05-03] MEDS ORDERED: KETOROLAC 15 MG/ML 1 ML VIAL IVP STA (23:12)
[2022-05-03 23:36] VITALS: BP 149/91; PULSE 76
== END 2022-05-03 23:36 | disposition home or self-care (01) ==
LOC: EC 17:50
DX: D57.00 Hb-SS disease with crisis, unspecified (principal); F17.200 Nicotine dependence, unspecified, uncomplicated; Z88.2 Allergy status to sulfonamides
CPT/HCPCS: 36415; 93005; 80053; 83605; 83735; 85025; 85045; 81003; 99284; 96374; 96375; 96361; J1170; J1885

== ENCOUNTER 2023-03-20 17:26 | Emergency (ER) | payer OTHER ==
[2023-03-20 17:32] VITALS: RESP 18; TEMP 98.8
[2023-03-20] MEDS ORDERED: SODIUM CHLORIDE 0.9% 1,000 ML IV ONE (18:08)
[2023-03-20] MEDS ORDERED: HYDROmorphone 1 MG/ML 1 ML SYRINGE IVP STA (18:08)
--- NOTE | 2023-03-20 18:12 | ED ---
General Adult HPI - General Chief complaint: Extremity Injury, Lower Stated complaint: Left hip pain Time Seen by Provider: 03/20/23 17:34 Source: patient, RN notes reviewed, old records reviewed Mode of arrival: ambulatory Limitations: physical limitation - History of Present Illness Initial comments: 32-year-old male presents emergency Department with chief complaint of left hip pain. He states he has a history of sickle cell disease and states this feels like his prior sickle cell crises. He states that the pain woke him up from a nap. He states the pain starts in his left hip and radiates down his left thigh. He states that he believes this was caused by a combination of the weather and stress. He states his last sickle cell crisis was about 5-6 months ago. He states he typically gets these pains and is able to manage them on his own but today his pain is worse but similar to prior crises. Denies chest pain, shortness breath. Denies fever, recent illness. - Related Data Home Medications Medication Instructions Recorded Confirmed No Known Home Medications 03/20/23 03/20/23 Allergies Allergy/AdvReac Type Severity Reaction Status Date / Time Sulfa (Sulfonamide Allergy Rash/Hives Verified 03/20/23 20:17 Antibiotics) Review of Systems ROS Statement: Those systems with pertinent positive or pertinent negative responses have been documented in the HPI. ROS Other: All systems not noted in ROS Statement are negative. Past Medical History Additional Past Medical History / Comment(s): Sickle cell anemia History of Any Multi-Drug Resistant Organisms: None Reported Past Surgical History: No Surgical Hx Reported Past Psychological History: No Psychological Hx Reported Smoking Status: Current every day smoker Past Alcohol Use History: None Reported Past Drug Use History: Marijuana General Exam Limitations: physical limitation General appearance: alert, in no apparent distress Head exam: Present: atraumatic, normocephalic, normal inspection Eye exam: Present: normal appearance, PERRL, EOMI. Absent: scleral icterus, conjunctival injection, periorbital swelling ENT exam: Present: normal exam, mucous membranes moist Neck exam: Present: normal inspection. Absent: tenderness, meningismus, lymphadenopathy Respiratory exam: Present: normal lung sounds bilaterally. Absent: respiratory distress, wheezes, rales, rhonchi, stridor Cardiovascular Exam: Present: regular rate, normal rhythm, normal heart sounds. Absent: systolic murmur, diastolic murmur, rubs, gallop, clicks GI/Abdominal exam: Present: soft, normal bowel sounds. Absent: distended, tenderness, guarding, rebound, rigid Extremities exam: Present: normal inspection, tenderness (Tenderness left hip and thigh and leg), normal capillary refill Neurological exam: Present: alert, oriented X3, CN II-XII intact Psychiatric exam: Present: normal affect, normal mood Skin exam: Present: warm, dry, intact, normal color. Absent: rash Course Vital Signs 03/20/23 03/20/23 17:27 21:00 Temperature 98.8 F Pulse Rate 91 85 Respiratory 18 18 Rate Blood Pressure 131/73 122/83 O2 Sat by Pulse 99 97 Oximetry Medical Decision Making - Medical Decision Making Was pt. sent in by a medical professional or institution (, PA, TRACE CLERK, urgent care, hospital, or alf...) When possible be specific @ -[No] Did you speak to anyone other than the patient for history (EMS, parent, family, police, friend...)? What history was obtained from this source @ -[No] Did you review nursing and triage notes (agree or disagree)? Why? @ -[I reviewed and agree with nursing and triage notes] Were old charts reviewed (outside hosp., previous admission, EMS record, old EKG, old radiological studies, urgent care reports/EKG's, alf records)? Report findings @ -[No old charts were reviewed] Differential Diagnosis (chest pain, altered mental status, abdominal pain women, abdominal pain men, vaginal bleeding, weakness, fever, dyspnea, syncope, headache, dizziness, GI bleed, back pain, seizure, CVA, palpatations, mental health, musculoskeletal)? @ -[nDifferential Musculoskeletal Muscular strain, contusion, ligament sprain, fracture, arthritis, septic arthritis, bursitis, cellulitis, muscle spasm, nerve compression, DVT, arterial occlusion, herpes zoster, electrolyte abnormality, tumor.... This is not meant to be in all inclusive list] EKG interpreted by me (3pts min.). @ -[None] X-rays interpreted by me (1pt min.). @ -[X-ray left hip shows no acute fracture, no evidence of avascular necrosis interpreted by me] CT interpreted by me (1pt min.). @ -[None done] U/S interpreted by me (1pt. min.). @ -[None done] What testing was considered but not performed or refused? (CT, X-rays, U/S, labs)? Why? @ -[None] What meds were considered but not given or refused? Why? @ -[None] Did you discuss the management of the patient with other professionals (professionals i.e. DrMelvi, PA, TRACE CLERK, lab, RT, psych nurse, social science professor, services clerk, teacher, access control officer, case reviewer)? Give summary @ -[No] Was smoking cessation discussed for >3mins.? @ -[No] Was critical care preformed (if so, how long)? @ -[No] Were there social determinants of health that impacted care today? How? (Homelessness, low income, unemployed, alcoholism, drug addiction, transportation, low edu. Level, literacy, decrease access to med. care, usp, rehab)? @ -[No] Was there de-escalation of care discussed even if they declined (Discuss DNR or withdrawal of care, Hospice)? DNR status @ -[No] What co-morbidities impacted this encounter? (DM, HTN, Smoking, COPD, CAD, Can cer, CVA, ARF, Chemo, Hep., AIDS, mental health diagnosis, sleep apnea, morbid obesity)? @ -[Sickle cell] Was patient admitted / discharged? Hospital course, mention meds given and route, prescriptions, significant lab abnormalities, going to OR and other pertinent info. @ -[Discharged. Patient presented to the emergency department with chief complaint of "sickle cell crisis "he states that he woke up from a nap around 1430 and started having left hip pain which is consistent with his history of sickle cell crisis. CBC and CMP were obtained which are comparable to previous lab studies, retic count was 4.2 patient is not having an aplastic crisis. IV fluids were administered and patient was given 1 mg of Dilaudid which helped with his pain. Patient was reevaluated later and stated that he was feeling better but could use a little more pain control so another 0.5 with Dilaudid was administered. Patients pain was controlled and patient was discharged in stable condition. Case discussed with my attending Dr. Lindsey] Undiagnosed new problem with uncertain prognosis? @ -[No] Drug Therapy requiring intensive monitoring for toxicity (Heparin, Nitro, Insulin, Cardizem)? @ -[No] Were any procedures done? @ -[No] Diagnosis/symptom? @ -[Sickle cell crisis] Acute, or Chronic, or Acute on Chronic? @ -[Acute] Uncomplicated (without systemic symptoms) or Complicated (systemic symptoms)? @ -[Uncomplicated] Side effects of treatment? @ -[No] Exacerbation, Progression, or Severe Exacerbation? @ -[No] Poses a threat to life or bodily function? How? (Chest pain, [place], [place], pneumonia, PE, COPD, DKA, ARF, appy, cholecystitis, CVA, Diverticulitis, Homicidal, Suicidal, threat to staff... and all critical care pts) @ -[No] - Lab Data Result diagrams: 03/20/23 18:03 03/20/23 18:03 Lab Results 03/20/23 03/20/23 03/20/23 Range/Units 18:03 18:03 21:07 WBC 8.1 (3.8-10.6) k/uL RBC 4.72 (4.30-5.90) m/uL Hgb 12.8 L (13.0-17.5) gm/dL Hct 35.7 L (39.0-53.0) % MCV 75.6 L (80.0-100.0) fL MCH 27.1 (25.0-35.0) pg MCHC 35.9 (31.0-37.0) g/dL RDW 16.8 H (11.5-15.5) % Plt Count 121 L (150-450) k/uL MPV 9.4 Neutrophils % (Manual) 36 % Band Neuts % (Manual) 2 % Lymphocytes % (Manual) 60 % Monocytes % (Manual) 2 % Neutrophils # (Manual) 3.00 (1.3-7.7) k/uL Lymphocytes # (Manual) 4.86 H (1.0-4.8) k/uL Monocytes # (Manual) 0.16 (0-1.0) k/uL Nucleated RBCs 0 (0-0) /100 WBC Manual Slide Review Performed Polychromasia Present Hyperchromasia Slight Poikilocytosis (manual Present Anisocytosis Slight Anisocytosis (manual) Present Microcytosis Slight Retic Count 4.3 H (0.5-2.0) % Sodium 140 (137-145) mmol/L Potassium 3.7 (3.5-5.1) mmol/L Chloride 105 (98-107) mmol/L Carbon Dioxide 25 (22-30) mmol/L Anion Gap 10 mmol/L BUN 10 (9-20) mg/dL Creatinine 0.95 (0.66-1.25) mg/dL Est GFR (CKD-EPI)AfAm >90 (>60 ml/min/1.73 sqM) Est GFR (CKD-EPI)NonAf >90 (>60 ml/min/1.73 sqM) Glucose 86 (74-99) mg/dL Calcium 8.9 (8.4-10.2) mg/dL Total Bilirubin 1.2 (0.2-1.3) mg/dL AST 34 (17-59) U/L ALT 31 (4-49) U/L Alkaline Phosphatase 74 (38-126) U/L Total Protein 7.6 (6.3-8.2) g/dL Albumin 4.4 (3.5-5.0) g/dL Urine Color Yellow Urine Appearance Clear (Clear) Urine pH 5.5 (5.0-8.0) Ur Specific [place] 1.013 (1.001-1.035) Urine Protein Negative (Negative) Urine Glucose (UA) Negative (Negative) Urine Ketones Negative (Negative) Urine Blood Negative (Negative) Urine Nitrite Negative (Negative) Urine Bilirubin Negative (Negative) Urine Urobilinogen <2.0 (<2.0) mg/dL Ur Leukocyte Esterase Negative (Negative) Disposition Clinical Impression: Sickle cell crisis Disposition: HOME SELF-CARE Condition: Stable Instructions (If sedation given, give patient instructions): Sickle Cell Crisis (ED) Additional Instructions: Please return to the Emergency Department if symptoms worsen or any other concerns. Is patient prescribed a controlled substance at d/c from ED?: No Referrals: Nilesh East MD [Primary Care Provider] - 1-2 days Time of Disposition: 21:23
--- NOTE | 2023-03-20 18:24 | XR ---
EXAMINATION TYPE: XR Hip Complete LT DATE OF EXAM: 03/20/2023 6:18 PM INDICATION: Patient age:Male; 32 years old; Reason for study: hip pain, hx sickle cell; PHH. COMPARISON: None. TECHNIQUE: The left hip was examined in the frontal and lateral projections . FINDINGS: No evidence of any acute osseous pathology, joint dislocation, or soft tissue swelling. IMPRESSION: No acute osseous pathology.
[2023-03-20 19:37] LABS: ALT 31 U/L (4-49); African American GFR (CKD) >90 (>60 ml/min/1.73 sqM); Albumin 4.4 g/dL (3.5-5.0); Anion Gap 10 mmol/L; Blood Urea Nitrogen 10 mg/dL (9-20); Calcium 8.9 mg/dL (8.4-10.2); Carbon Dioxide 25 mmol/L (22-30); Chloride 105 mmol/L (98-107); Glucose 86 mg/dL (74-99); Non-African American GFR(CKD) >90 (>60 ml/min/1.73 sqM); Sodium 140 mmol/L (137-145); Total Bilirubin 1.2 mg/dL (0.2-1.3); Total Protein 7.6 g/dL (6.3-8.2)
[2023-03-20 19:49] LABS: AST 34 U/L (17-59); Alkaline Phosphatase 74 U/L (38-126); Potassium 3.7 mmol/L (3.5-5.1)
[2023-03-20 20:05] LABS: Anisocytosis Slight; HCT 35.7 % (39.0-53.0); HGB 12.8 gm/dL (13.0-17.5); Hyperchromasia Slight; MCH 27.1 pg (25.0-35.0); MCHC 35.9 g/dL (31.0-37.0); MCV 75.6 fL (80.0-100.0); Mean Platelet Volume 9.4; Microcytosis Slight; Platelet Count 121 k/uL (150-450); RBC 4.72 m/uL (4.30-5.90); RDW 16.8 % (11.5-15.5); Reticulocyte % 4.3 % (0.5-2.0); WBC 8.1 k/uL (3.8-10.6)
[2023-03-20] MEDS ORDERED: HYDROmorphone 0.5 MG/0.5 ML SYRINGE IVP STA (20:20)
[2023-03-20 20:35] LABS: Band Neutrophils % 2 %; Lymphocytes # (M) 4.86 k/uL (1.0-4.8); Monocytes # (M) 0.16 k/uL (0-1.0); Neutrophils % (M) 36 %; Nucleated Red Blood Cells 0 /100 WBC (0-0); Total Cells Counted 100
[2023-03-20 20:36] LABS: Anisocytosis (M) Present; Poikilocytosis (M) Present; Polychromasia Present
[2023-03-20 21:14] VITALS: BP 122/83; PULSE 85
[2023-03-20 21:27] LABS: Appearance,Urine Clear (Clear); Bilirubin,Urine Negative (Negative); Blood,Urine Negative (Negative); Color,Urine Yellow; Glucose,Urine (UA) Negative (Negative); Ketones,Urine Negative (Negative); Leukocyte Esterase,Urine Negative (Negative); Nitrite,Urine Negative (Negative); PH, Urine 5.5 (5.0-8.0); Protein,Urine Negative (Negative); Specific Gravity,Urine 1.013 (1.001-1.035); Urobilinogen,Urine <2.0 mg/dL (<2.0)
== END 2023-03-20 21:48 | disposition home or self-care (01) ==
LOC: EC 17:26
DX: D57.00 Hb-SS disease with crisis, unspecified (principal); F12.90 Cannabis use, unspecified, uncomplicated; F17.200 Nicotine dependence, unspecified, uncomplicated; Z88.2 Allergy status to sulfonamides
CPT/HCPCS: 99284; 96374; 96361; 36415; 80053; 85025; 85045; 81003; 73502; 96376; J1170 ×2